=== PATIENT | female | born 1970 | race Caucasian/White ===

== ENCOUNTER 2018-01-24 15:51 | Emergency (ER) | payer MEDICAID | END 2018-01-24 17:19 | disposition home or self-care (01) | LOC: FTE 15:51 | DX: S50.861A Insect bite (nonvenomous) of right forearm, initial encounter (principal); L25.9 Unspecified contact dermatitis, unspecified cause; E11.9 Type 2 diabetes mellitus without complications; S50.862A Insect bite (nonvenomous) of left forearm, initial encounter; W57.XXXA Bitten or stung by nonvenomous insect and other nonvenomous arthropods, initial encounter; Y92.9 Unspecified place or not applicable | CPT/HCPCS: 99284; Z7502 ==

== ENCOUNTER 2018-04-08 22:10 | Emergency (ER) | payer SELFPAY, MEDICAID ==
[2018-04-08 23:18] LABS: ADD MAN DIFF? NO
[2018-04-08 23:22] LABS: BASOPHILS % 0.3 % (0.0-2.0); EOSINOPHILS # 0.2 10^3/ul (0.0-0.5); EOSINOPHILS % 1.1 % (0.0-7.0); HEMATOCRIT 39.6 % (37.0-47.0); HEMOGLOBIN 13.1 g/dl (12.0-16.0); LYMPHOCYTES # 3.2 10^3/ul (0.8-2.9); LYMPHOCYTES % 21.6 % (15.0-51.0); MEAN CORPUSCULAR HGB CONC 33.1 g/dl (32.0-37.0); MEAN CORPUSCULAR VOLUME 87.8 fl (82.0-101.0); MEAN PLATELET VOLUME 10.4 fl (7.4-10.4); MONOCYTE # 1.2 10^3/ul (0.3-0.9); MONOCYTES % 7.8 % (0.0-11.0); NEUTROPHIL # 10.2 10^3/ul (1.6-7.5); NEUTROPHILS % 68.8 % (39.0-77.0); PLATELET COUNT 298 10^3/UL (140-415); RED BLOOD COUNT 4.51 10^6/ul (4.20-5.40); RED CELL DISTRIBUTION WIDTH 12.6 % (11.5-14.5)
[2018-04-08 23:22] LABS: WHITE BLOOD COUNT 14.8 10^3/ul (4.8-10.8)
[2018-04-08 23:38] LABS: ANION GAP 15 (8-16); BLOOD UREA NITROGEN 8 mg/dl (7-20); CALCIUM 8.9 mg/dl (8.4-10.2); CARBON DIOXIDE 27 mmol/L (21-31); CHLORIDE 101 mmol/L (97-110); GLUCOSE 272 mg/dl (70-220); POTASSIUM 3.6 mmol/L (3.5-5.1); SODIUM 139 mmol/L (135-144)
[2018-04-08 23:40] LABS: INR 0.97
[2018-04-08 23:41] LABS: PARTIAL THROMBOPLASTIN TIME 27.9 Sec (25.0-35.0)
[2018-04-08 23:51] LABS: TROPONIN-I < 0.012 ng/ml (0.000-0.120)
[2018-04-08 23:55] LABS: FREE THYROXINE INDEX (Calc) 1.77 ug/ml (0.65-3.89); T3 UPTAKE 31.1 % (23.5-40.5); T4 (THYROXINE) 5.7 ug/dl (5.5-11.0)
[2018-04-09] MEDS: SOD CHLORIDE 0.9% 500 ML IV (00:46)
[2018-04-09] MEDS: LORAZEPAM 2 MG INJ IV (00:47)
== END 2018-04-09 02:54 | disposition home or self-care (01) ==
LOC: E/R 04-09 02:54
DX: F41.9 Anxiety disorder, unspecified (principal); R51 Headache; E11.9 Type 2 diabetes mellitus without complications; R06.02 Shortness of breath
CPT/HCPCS: 36415; 70450; 71045; 80048; 84436; 84443; 84479; 84484; 85025; 85610; 85730; 93005; 99285-25